=== PATIENT | male | born 1990 | race Caucasian/White ===

== ENCOUNTER 2020-01-07 21:24 | Emergency (ER) | payer OTHER ==
[~2020-01-07] VITALS: Ht 188 cm; Wt 98.9 kg
[2020-01-07 21:46] VITALS: Ht 188 cm; Wt 98.9 kg
[2020-01-07 23:30] VITALS: BP 137/78
== END 2020-01-07 23:30 | disposition home or self-care (01) ==
LOC: ED 21:24
DX: S16.1XXA Strain of muscle, fascia and tendon at neck level, initial encounter (principal); S39.012A Strain of muscle, fascia and tendon of lower back, initial encounter; V49.9XXA Car occupant (driver) (passenger) injured in unspecified traffic accident, initial encounter; Y93.89 Activity, other specified; Y92.89 Other specified places as the place of occurrence of the external cause; Y99.8 Other external cause status